=== PATIENT | male | born 1960 | race Caucasian/White ===

== ENCOUNTER 2016-06-22 22:11 | Observation (INO) | payer SELFPAY ==
[2016-06-22] MEDS ORDERED: SODIUM CHLORIDE 0.9% FLUSH 10 ML SOL IV PRN (22:25)
[2016-06-22] MEDS ORDERED: NITROGLYCERIN 0.4 MG TAB SL PRN ×2 (22:25→23:29)
[2016-06-22] MEDS ORDERED: ASPIRIN 81 MG CHEWABLE CTB PO STA (22:25)
[2016-06-22] MEDS ORDERED: MORPHINE SULFATE 10 MG/ML SOL IV PRN (22:25)
[2016-06-22 22:35] LABS: BASOPHILS % (AUTO) 1 % (0-3); EOSINOPHILS % (AUTO) 1 % (0-9); HEMATOCRIT 40 % (39-53); MEAN CORPUSCULAR HGB CONC 35.7 gm/dl (32.0-36.0); MONOCYTES % (AUTO) 8.4 % (0-12)
[2016-06-22 22:45] LABS: CALCIUM 8.7 mg/dl (8.5-10.1); GLOM FILT RATE 65 mL/min (>60); POTASSIUM 3.9 mMol/L (3.5-5.1); SODIUM 136 mMol/L (136-145)
[2016-06-22] MEDS ORDERED: ASPIRIN 81 MG CHEWABLE CTB ONE (22:47)
[2016-06-22 23:49] VITALS: RESP 18; O2SAT 99
[2016-06-23] MEDS ORDERED: ENOXAPARIN 30 MG SOL SC SCH
[2016-06-23] MEDS ORDERED: ENOXAPARIN 80 MG SOL SC SCH
[2016-06-23] MEDS ORDERED: ESOMEPRAZOLE MAGNESIUM 20 MG PO PRN (00:19)
[2016-06-23] MEDS ORDERED: PANTOPRAZOLE SODIUM 40 MG ECT PO PRN (00:38)
[2016-06-23] MEDS ORDERED: METOPROLOL SUCCINATE 50 MG ER TAB PO SCH (00:45)
[2016-06-23 08:47] VITALS: BP 107/72; PULSE 78; TEMP 97.8
[2016-06-23] MEDS ORDERED: ASPIRIN EC 81 MG PO SCH (21:00)
== END 2016-06-23 10:25 | disposition home or self-care (01) | DRG 313 ==
LOC: ED 22:11 → ACUTE CARE 23:08
PROVIDERS: ADMIT Emergency Medicine; ATTEND Emergency Medicine
DX: R07.9 Chest pain, unspecified (principal); Z86.79 Personal history of other diseases of the circulatory system; Z95.5 Presence of coronary angioplasty implant and graft
CPT/HCPCS: 36415; 71010; 80048; 82550; 84484; 85025; 85610; 85730; 93005; 93012; 99285; J1650